=== PATIENT | female | born 1990 | race African-American/Black ===

== ENCOUNTER 2021-09-22 07:43 | Emergency (ER) | payer MEDICAID ==
[~2021-09-22] VITALS: Ht 165.1 cm; Wt 71.0 kg
[2021-09-22 08:02] VITALS: BP 148/83
[2021-09-22] MEDS ORDERED: IBUPROFEN 600MG TABLET PO ONE (08:45)
[2021-09-22] MEDS ORDERED: CEFTRIAXONE SODIUM 500 MG/VIAL IM ONE (09:30)
[2021-09-22 09:32] LABS: CLARITY URINE CLOUDY (CLEAR); COLOR URINE YELLOW (YELLOW); KETONES URINE TRACE (NEGATIVE); LEUKOCYTE ESTERASE URINE TRACE (NEGATIVE); NITRITE URINE NEGATIVE (NEGATIVE); OCCULT BLOOD URINE NEGATIVE (NEGATIVE); PH URINE >=9.0 (4.5-8.0); PROTEIN URINE 1+ (NEGATIVE); SPECIFIC GRAVITY URINE 1.026 (1.005-1.030)
[2021-09-22] MEDS ORDERED: DOXY100C5 MT (10:38)
[2021-09-22] MEDS ORDERED: IBUP-2029 MT (10:38)
[2021-09-22] MEDS ORDERED: ACETAMINOPHEN 325MG TABLET PO ONE (10:45)
[2021-09-22] MEDS ORDERED: T3 PO (11:04)
== END 2021-09-22 11:06 | disposition home or self-care (01) ==
LOC: ER 07:43
DX: S20.20XA Contusion of thorax, unspecified, initial encounter (principal); Z20.2 Contact with and (suspected) exposure to infections with a predominantly sexual mode of transmission; Z98.890 Other specified postprocedural states; Z87.828 Personal history of other (healed) physical injury and trauma; Y04.0XXA Assault by unarmed brawl or fight, initial encounter; Y93.89 Activity, other specified; Y92.89 Other specified places as the place of occurrence of the external cause
CPT/HCPCS: 71046; 81003; 81025; 99284